=== PATIENT | female | born 1975 | race Caucasian/White ===

== ENCOUNTER → 2016-09-27 | Outpatient (CLI) | payer OTHER ==
--- NOTE | 2016-09-29 08:18 | MA ---
Screening Digital Mammogram With iCAD Analysis Clinical Indications: Routine screening. Technique: Standard cephalocaudal projections are obtained. Digital breast tomosynthesis was performe d in the MLO projection with reconstruction at 1.0 mm slice thickness and composite MLO views reconst ructed. This examination is processed by the iCAD computer aided detection system. Comparison: October 2014, October 2013. Breast density: Type C: Heterogeneously dense. Findings: CAD was reviewed. There is increased nodularity in the axillary aspect of the right breast. No suspicious microcalcifications are seen. The left breast is stable in appearance. Impression: Increased right breast nodularity requires further evaluation, BI-RADS 0. Recommendation: Targeted right breast ultrasound with additional mammographic views as directed by th e interpreting radiologist. [facility] will send a result letter to the patient. Negative mammography should not preclude additional workup of a clinically suspicious finding. The patient's information is entered into a reminder system with a target due date for her next mammo gram.
== END ==
LOC: FIMAGING 14:29
DX: Z12.31 Encounter for screening mammogram for malignant neoplasm of breast (principal)
CPT/HCPCS: G0202

== ENCOUNTER → 2016-10-08 | Outpatient (CLI) | payer OTHER ==
--- NOTE | 2016-10-08 14:35 | US ---
Diagnostic Right Breast Ultrasound History: Asymmetry on mammograms. Comparison: Mammograms September 27, 2016. Breast ultrasound October 07, 2013. Technique: Limited grayscale and Doppler ultrasound in the region of mammographic abnormality was per formed. Real time sonography was performed by the radiologist. Findings: There is a cluster of simple cysts in the 11 o'clock right breast 8 cm from the nipple jeffery uring 1.4 x 0.7 cm combined, corresponding to the mammographic asymmetry. No suspicious masses or are as of architectural distortion are identified. Impression: Benign cluster of cysts in the upper-outer right breast. BI-RADS 2: Benign findings. Recommendation: Screening mammograms in one year or sooner if clinically indicated. Findings and recommendations were discussed with the patient. [facility] will send a result letter to the patient.
--- NOTE | 2016-10-08 15:26 | DX ---
KUB History: Sitz marker study to evaluate colonic transit time Findings: There are no dilated loops or abnormal calcifications. Retroperitoneal fat planes are intac t. There are 4 abdominal Sitzmarks markers, 2 within the ascending colon and 2 within the descending colon. There are an additional 8 Sitz marker in the pelvic sigmoid colon region. There is benign scle rosis in the mid lateral left iliac crest and in the left supra-acetabular iliac bone. There is an IU D in the pelvis. Impression: 12 Sitz markers described above.
== END ==
LOC: CIMAGING 13:51
DX: K59.00 Constipation, unspecified (principal)
CPT/HCPCS: 74000-PO; 76641-PO

== ENCOUNTER → 2016-10-10 | Outpatient (CLI) | payer OTHER ==
--- NOTE | 2016-10-10 09:00 | DX ---
AP Supine Abdomen, at 8:07 a.m. Clinical History: 41-year-old female with constipation and evaluation of "Sitzmarks" markers. ICD-10 Diagnostic Code: K59.00. Comparison Study: Abdominal radiograph, dated October 08, 2016. Findings: Again noted is a T-shaped intrauterine device over the central pelvis. All the previously s een Sitzmarks markers have since passed. There is mild residual constipation. A couple of sclerotic o pacities in the left iliac bone seen along the lateral left iliac crest and above the left acetabulum are stable. The osseous structures are otherwise unremarkable. The lung bases have been excluded. Th ere is no apparent organomegaly. There is a small phlebolith in the left hemipelvis. Impression: Compared to October 08, 2016, there has been interim passage of all previously seen Sitzm arks markers.
== END ==
LOC: CIMAGING 08:02
DX: Z13.818 Encounter for screening for other digestive system disorders (principal); Z97.5 Presence of (intrauterine) contraceptive device
CPT/HCPCS: 74000-PO

== ENCOUNTER → 2017-02-19 | Outpatient (CLI) | payer OTHER | LOC: FCPNEURO 23:12 | PROVIDERS: ATTEND Student in an Organized Health Care Education/Training Program | DX: G47.33 Obstructive sleep apnea (adult) (pediatric) (principal) ==

== ENCOUNTER → 2017-09-28 | Outpatient (CLI) | payer OTHER | LOC: CIMAGING 15:01 | PROVIDERS: ATTEND Family Medicine | DX: Z12.31 Encounter for screening mammogram for malignant neoplasm of breast (principal) ==

== ENCOUNTER → 2018-11-05 | Outpatient (CLI) | payer OTHER | LOC: FIMAGING 15:40 | DX: Z12.31 Encounter for screening mammogram for malignant neoplasm of breast (principal) ==

== ENCOUNTER → 2018-11-30 | Outpatient (CLI) | payer OTHER | LOC: BMCIMAGING 15:23 | DX: N64.89 Other specified disorders of breast (principal); N60.01 Solitary cyst of right breast ==